=== PATIENT | female | born 1940 | race Caucasian/White ===

== ENCOUNTER 2016-07-09 07:48 | Day surgery (SDC) | payer MEDICARE ==
[2016-07-09] MEDS ORDERED: Lactated Ringers 1,000 ML IV SCH (08:30)
[2016-07-09] MEDS ORDERED: Midazolam 1 MG/ML 2 ML SDV IV ONE (09:30)
[2016-07-09] MEDS ORDERED: Propofol 200 MG/20 ML SDV IV ONE (09:30)
--- NOTE | 2016-07-09 10:00 | PCM.OPNOTE ---
- General Post-Op/Procedure Note Date of Surgery/Procedure: 07/09/16 Operative Procedure(s): c scope Findings: sigmoid diverticulum Pre Op Diagnosis: colon cancer screening Post-Op Diagnosis: sigmoid diverticulum Anesthesia Technique: MAC Primary Surgeon: Roderick Kohler Anesthesia Provider: Rubi Landers Pathology: none Complications: None Condition: Good Free Text/Narrative:: see dictation
--- NOTE | 2016-07-09 10:32 | OR ---
DATE OF OPERATION: 07/09/2016 SURGEON: Roderick Kohler MD PROCEDURE PERFORMED: Colonoscopy. PREOPERATIVE DIAGNOSIS: Need for screening colonoscope. POSTOPERATIVE DIAGNOSIS: Single sigmoid diverticulum. INDICATIONS FOR PROCEDURE: This is a 76-year-old white female, who presents for her initial screening colonoscopy. She was offered and accepted same. DESCRIPTION OF OPERATION: After an excellent IV sedation was administered, digital rectal exam was performed. No marked abnormality was noted. The flexible colonoscope was inserted and advanced without difficulty to the cecum. The prep was excellent. The following findings were noted. Ascending colon, unremarkable. Transverse colon, unremarkable. Descending colon, unremarkable. Sigmoid, a single diverticulum was noted. Rectum and anus, unremarkable. Colon was deflated as the scope was removed. The patient tolerated the procedure well and was taken to recovery room in good condition. /[id number] /ALESSANDROL
[2016-07-09 10:34] VITALS: BP 117/75
== END 2016-07-09 10:56 | disposition home or self-care (01) ==
LOC: FB.SDS 07:48
PROVIDERS: ATTEND Surgery
DX: Z12.11 Encounter for screening for malignant neoplasm of colon (principal); K57.30 Diverticulosis of large intestine without perforation or abscess without bleeding; I10 Essential (primary) hypertension; Z79.82 Long term (current) use of aspirin; Z79.899 Other long term (current) drug therapy; Z90.710 Acquired absence of both cervix and uterus; Z98.890 Other specified postprocedural states; Z87.891 Personal history of nicotine dependence
CPT/HCPCS: 00810; G0121; J7120; J2250; J2704